=== PATIENT | female | born 2000 | race Caucasian/White ===

== ENCOUNTER 2021-03-29 12:17 | Emergency (ER) | payer OTHER, SELFPAY ==
[2021-03-29 12:24] VITALS: BP 103/62; PULSE 93; RESP 14; TEMP 37.2; O2SAT 100
--- NOTE | 2021-03-29 12:43 | ED.SKABFB ---
HPI - Skin/Abscess/Foreign Bdy General Chief complaint: Skin/Abscess/Foreign Body Stated complaint: hives Source: patient and RN notes reviewed Limitations: no limitations History of Present Illness HPI narrative: The patient, previously mostly healthy, presents with skin eruption. Patient states she has a shorter 1 day history of pink, raised, itchy eruption on her extremities and trunk. The rash has wheals/hives, and patient is on no medication but ate some mushrooms last night. No shortness of breath, tongue edema, fever, URI?sinusitis Related Data Allergies Allergy/AdvReac Type Severity Reaction Status Date / Time codeine Allergy Unknown Verified 03/15/14 08:47 No Known Allergies Allergy Unverified 03/20/18 23:24 Review of Systems Review of Systems: Narrative: General/Constitutional: No weight loss,fever Eyes: N0: Redness,discharge Ears/Nose/Throat: No: Epistaxis,ear discharge Respiratory: Denies: Hemoptysis Gastrointestinal: No Vomiting, Bleeding-rectal Skin: No Lumps, REPORTS eruption Neurologic: No Focal Weakness,Sz Hematologic: Denies: Petechiae/Purpura Psychiatric: No: Suicida ideationl All Other Systems: Reviewed and Negative PMFSH Family History Family History (Updated 03/26/18 @ 08:15 by DOCTOR UNKNOWN) Mother Family history of thyroid disease Cerebrovascular accident Sibling Family history of liver disease Grandparent Family history of coronary artery disease Other Depression Family history of cardiovascular disease Family history of chronic obstructive pulmonary disease Hypertension Social History Social History Smoking status: Current every day smoker Second hand tobacco smoke exposure: No Alcohol intake: never Gender identity (if verbalized by the patient): Female Comments At time of signature, agree with nursing past medical, surgical, social and family history. There is no relevant family history pertinent to the presenting complaint Exam Narrative: Exam Narrative: General Appearance: Well nourished, Normocephalic,, Conjunctiva clear Ear: External ear normal Nose: Normal nose, Nare clear Mouth/Throat: Normal appearing Neck Exam: Supple Respiratory: Airway patent, No respiratory distress, CTA Musculoskeletal: Moves all extremities, Non tender Skin: Warm, Dry ; widespread polymorphic, blanching wheals on extremities and trunk Neurological: A&O x3,, Normal affect Course Vital Signs Vital signs: Vital Signs Temperature 99 F 03/29/21 12:24 Pulse Rate 93 03/29/21 12:24 Respiratory Rate 14 03/29/21 12:24 Blood Pressure 103/62 03/29/21 12:24 Pulse Oximetry 100 03/29/21 12:24 Temperature 99 F 03/29/21 12:24 Pulse Rate 93 03/29/21 12:24 Respiratory Rate 14 03/29/21 12:24 Blood Pressure 103/62 03/29/21 12:24 Pulse Oximetry 100 03/29/21 12:24 Discharge Plan Discharge Clinical Impression: Urticaria Patient Disposition: Home, Self-Care Condition: Stable Instructions: Urticaria (ED) Prescriptions: New prednisone 20 mg tablet 60 mg PO DAILY Qty: 15 RF: 0 loratadine [Wal-itin] 10 mg tablet 10 mg PO DAILY Qty: 30 RF: 0 albuterol sulfate [Ventolin HFA] 90 mcg/actuation HFA aerosol inhaler 2 puff INHALATION QID PRN (Reason: shortness of breath or wheezing) Qty: 1 RF: 1 Follow-up/Referrals: PHYSICIAN,RISK INTERN [Primary Care Provider] - Stand Alone Forms: Work/School Release IP
== END 2021-03-29 12:49 | disposition home or self-care (01) ==
PROVIDERS: Emergency Provider Emergency Medicine
DX: L50.9 Urticaria, unspecified (principal)
CPT/HCPCS: 99213; G0463

== ENCOUNTER 2021-03-29 17:07 | Emergency (ER) | payer MEDICAID, SELFPAY ==
[2021-03-29 17:15] VITALS: BP 113/77; PULSE 101; RESP 16; TEMP 36.7; O2SAT 98
--- NOTE | 2021-03-29 17:38 | ED.ALLEREA ---
HPI - Allergic Reaction General Chief complaint: Allergic Reaction Stated complaint: Hives /allergic reaction Time Seen by Provider: 03/29/21 17:30 Source: patient Mode of arrival: ambulatory Limitations: no limitations History of Present Illness HPI narrative: Patient comes in with history of eating mushrooms last pm. She broke out in a rash after this, with some mild hives this am, and itching, which has been making her uncomfortable. Hives have been on chest, back, abdomen, and extremities. She took an oatmeal bath, that did not seem to help. She went to urgent care earlier today, and was prescribed loratadine 10mg daily, prednisone 60mg daily, and an albuterol inhaler prn. She took the loratadine which did not seem to help and then took benadryl 50mg po. She took prednisone 20mg one tab. She evidently did not realize the doctor wanted her to take three 20mg tablets, or prednisone 60mg at one time. She continued to have complaints of itching, and came in with her mother, because of the itching. She has had no wheezing or difficulty breathing. MD complaint: allergic reaction Onset (ago): hour(s) Exposure: food Symptoms: rash, itching and facial swelling Severity: moderate Treatment prior to arrival: steroids (antihistamine ) Previous Allergic Reaction History: none Related Data Allergies Allergy/AdvReac Type Severity Reaction Status Date / Time codeine Allergy Unknown Verified 03/15/14 08:47 No Known Allergies Allergy Unverified 03/20/18 23:24 Review of Systems Constitutional: Constitutional: Reports no additional constitutional complaints Eyes: Eyes: Reports no additional eye complaints ENT: Reports system reviewed and no additional complaints, except as documented Cardiovascular: Cardiovascular: Reports no additional cardiovascular complaints Respiratory: Respiratory: Reports no additional respiratory complaints Gastrointestinal: Gastrointestinal: Reports no additional gastrointestinal complaints Genitourinary: Genitourinary: Reports no additional female genitourinary complaints Musculoskeletal: Musculoskeletal: Reports no additional musculoskeletal complaints Integumentary/Breasts: Skin/Breast: Reports system reviewed and no additional complaints, except as docu Neurologic: Reports system reviewed and no additional complaints, except as documented Psychiatric: Psychiatric: Reports no additional psychiatric complaints Endocrine: Endocrine: Reports no additional endocrine complaints Hematologic/Lymphatic: Hematologic/Lymphatic: Reports no additional hematologic/lymphatic complaints Allergic/Immunologic: Allergic/Immunologic: Reports no additional allergic/immunologic complaints PMFSH Past Medical History Medical History Anxiety disorder Depression Surgical History Surgical History (Updated 03/30/21 @ :33 by Naldo Arellano MD) No significant past surgical history Family History Family History (Reviewed 03/30/21 @ :33 by Naldo Arellano MD) Mother Family history of thyroid disease Cerebrovascular accident Sibling Family history of liver disease Grandparent Family history of coronary artery disease Other Depression Family history of cardiovascular disease Family history of chronic obstructive pulmonary disease Hypertension Social History Social History (Reviewed 03/30/21 @ :33 by Naldo Arellano MD) Smoking status: Current every day smoker Second hand tobacco smoke exposure: No Alcohol intake: never Gender identity (if verbalized by the patient): Female Exam Const: General: no acute distress and alert Orientation/consciousness: patient oriented x3 HENMT: Head: normal to inspection Ears: external ears normal and TM's normal bilaterally General nose exam: Normal external nose present Mouth: Yes Normal oral and palatal mucosa present Throat: posterior oropharynx normal Eyes: Conjunctivae: conjunctivae n
[2021-03-29] MEDS: FAMOTIDINE 20 MG TABLET 40 MG PO (17:40)
[2021-03-29] MEDS: EPINEPHrine HCL INJ 1 MG/ML AMPUL 0.3 MG IM (17:45)
[2021-03-29] MEDS: DEXAMETHASONE SOD PHOS INJ 4 MG/ML VIAL 8 MG IM (17:45)
[2021-03-29 18:23] VITALS: BP 120/72; PULSE 101; RESP 16; TEMP 36.6; O2SAT 98
== END 2021-03-29 18:24 | disposition home or self-care (01) ==
PROVIDERS: Emergency Provider Emergency Medicine
DX: L50.9 Urticaria, unspecified (principal); T78.40XA Allergy, unspecified, initial encounter
CPT/HCPCS: 96372; 99283; 99284; A9270; J0171; J1100

== ENCOUNTER 2022-06-26 15:45 | Emergency (ER) | payer MEDICAID, SELFPAY ==
[2022-06-26 15:56] VITALS: BP 123/69; PULSE 99; RESP 16; TEMP 37.1; O2SAT 98
--- NOTE | 2022-06-26 17:12 | PC.NURSE ---
patient provided water.
[2022-06-26 17:26] LABS: SARS-CoV-2 RNA PCR Positive (Negative)
[2022-06-26] MEDS: SODIUM CHLORIDE 0.9% IV 1,000 ML 999 ML IV CONT (17:34)
[2022-06-26] MEDS: KETOROLAC 30 MG/ML VIAL (*BKC) IV PUSH (17:34)
--- NOTE | 2022-06-26 17:35 | ED.GENADULT ---
HPI - General Adult General Chief complaint: Upper Respiratory Infection Stated complaint: head and body aches Time Seen by Provider: 06/26/22 15:56 Source: patient Mode of arrival: ambulatory Limitations: no limitations History of Present Illness HPI narrative: This is a 22-year-old female with no significant past medical history presents today with COVID like symptoms of nasal congestion cough with no shortness of breath no nausea vomiting no fever chills does have body aches that she described as aching diffusely all over that she rates about an 8/10 did take some ibuprofen prior to arrival as non vaccinated for COVID and O2 sats in 98% on room air rest of vitals are stable. Onset (ago): day(s) Radiation: non-radiation Severity: moderate Severity scale (1-10): 8 Quality: aching Pain Consistency: constant Relieving factors: medication Related Data Home Medications Medication Instructions Recorded Confirmed escitalopram oxalate 10 mg tablet 10 mg PO DAILY 06/26/22 06/26/22 ibuprofen 600 mg tablet 600 mg PO TID PRN Pain 06/26/22 06/26/22 prazosin 1 mg capsule 1 mg PO DAILY 06/26/22 06/26/22 Allergies Allergy/AdvReac Type Severity Reaction Status Date / Time No Known Allergies Allergy Unverified 06/26/22 16:01 Review of Systems Review of Systems: All systems reviewed & are unremarkable except as noted in HPI and below PMFSH Past Medical History Medical History Anxiety disorder Depression Surgical History Surgical History No significant past surgical history Family History Family History Mother Family history of thyroid disease Cerebrovascular accident Sibling Family history of liver disease Grandparent Family history of coronary artery disease Other Depression Family history of cardiovascular disease Family history of chronic obstructive pulmonary disease Hypertension Social History Social History Smoking status: Current every day smoker Second hand tobacco smoke exposure: No Alcohol intake: never Gender identity (if verbalized by the patient): Female Exam Const: General: healthy appearing HENMT: Head: normal to inspection Ears: external ears normal Face/Nose/Sinus: Normal external nose present Face and sinus: normal facial exam Mouth: Yes Normal oral and palatal mucosa present Eyes: Conjunctivae: conjunctivae normal Pupils: Equal, round and reactive pupils present Neck: Neck: normal visual inspection Chest: Chest palpation & inspection: normal inspection of the chest Resp: Effort & Inspection: normal respiratory effort Auscultation: clear to auscultation bilaterally Cardio: Rate: regular rate Rhythm: regular rhythm GI: GI Palp: Yes Soft to palpation and Yes Tenderness to palpation present (GI) : General: Yes bladder normal to palpation Urinary Catheter: Urinary Catheter: patent and draining Skin: General skin exam: normal color Rashes: no rashes Neuro: General: patient oriented x3 and moves all extremities Cranial nerves: Yes Nystagmus not present Speech: normal speech Extrem: General: normal to inspection Psych: Mental Status: mental status grossly normal Affect: normal affect Course Course Emergency Course: Patient diagnosed with COVID, afebrile received IV fluids and Toradol and will send kenyd to her pharmacy. Vital Signs Vital signs: Vital Signs Temperature 37.1 C 06/26/22 15:56 Pulse Rate 99 06/26/22 15:56 Respiratory Rate 16 06/26/22 15:56 Blood Pressure 123/69 06/26/22 15:56 Pulse Oximetry 98 06/26/22 15:56 Oxygen Delivery Room Air 06/26/22 15:56 Temperature 37.1 C 06/26/22 15:56 Pulse Rate 99 06/26/22 15:56 Respiratory Rate 16 06/26/22 15:56 Blood Pressure 123/69 06/26
[2022-06-26 18:48] VITALS: BP 123/72; PULSE 87; RESP 16; TEMP 36.3; O2SAT 98
== END 2022-06-26 18:49 | disposition home or self-care (01) ==
PROVIDERS: Emergency Provider Emergency Medicine; PCP Family Medicine
DX: U07.1 COVID-19 (principal)
CPT/HCPCS: 96361; 96374; 99284; C9803; J1885; J7030; U0003; U0005